=== PATIENT | female | born 1960 | race Caucasian/White ===

== ENCOUNTER → 2017-08-17 | Emergency (ER) | payer OTHER ==
[2017-08-17 18:59] LABS: ADD MAN DIFF? NO
[2017-08-17 19:01] LABS: BASOPHILS % 0.4 % (0.0-2.0); EOSINOPHILS % 0.2 % (0.0-7.0); HEMATOCRIT 43.6 % (37.0-47.0); HEMOGLOBIN 14.8 g/dl (12.0-16.0); LYMPHOCYTES # 1.2 10^3/ul (0.8-2.9); LYMPHOCYTES % 24.9 % (15.0-51.0); MEAN CORPUSCULAR HEMOGLOBIN 30.4 pg (29.0-33.0); MEAN CORPUSCULAR HGB CONC 33.9 g/dl (32.0-37.0); MEAN CORPUSCULAR VOLUME 89.5 fl (82.0-101.0); MEAN PLATELET VOLUME 10.1 fl (7.4-10.4); MONOCYTE # 0.5 10^3/ul (0.3-0.9); MONOCYTES % 10.4 % (0.0-11.0); NEUTROPHIL # 3.1 10^3/ul (1.6-7.5); NEUTROPHILS % 63.7 % (39.0-77.0); PLATELET COUNT 192 10^3/UL (140-415); RED BLOOD COUNT 4.87 10^6/ul (4.20-5.40); RED CELL DISTRIBUTION WIDTH 12.2 % (11.5-14.5)
[2017-08-17 19:01] LABS: WHITE BLOOD COUNT 4.9 10^3/ul (4.8-10.8)
[2017-08-17] MEDS: ACETAMINOPHEN 325 MG TAB PO (19:11)
[2017-08-17] MEDS: morphine 4 MG/ML VIAL IV (19:11)
[2017-08-17] MEDS: ONDANSETRON 4 MG INJ IV (19:11)
[2017-08-17] MEDS: SODIUM CHLORIDE 0.9% 1L BAG IV* (19:11)
[2017-08-17 19:16] LABS: INR 0.91; PROTIME 12.3 Sec (11.9-14.9)
[2017-08-17 19:17] LABS: PARTIAL THROMBOPLASTIN TIME 28.5 Sec (25.0-35.0)
[2017-08-17 19:18] LABS: ALANINE AMINOTRANSFERASE 68 IU/L (13-69); ALBUMIN 4.7 g/dl (3.3-4.9); ALBUMIN/GLOBULIN RATIO 1.27; ALKALINE PHOSPHATASE 74 IU/L (42-121); ANION GAP 17 (8-16); ASPARTATE AMINO TRANSFERASE 52 IU/L (15-46); BILIRUBIN,INDIRECT 0.4 mg/dl (0-1.1); BILIRUBIN,TOTAL 0.4 mg/dl (0.2-1.3); BLOOD UREA NITROGEN 11 mg/dl (7-20); CALCIUM 9.7 mg/dl (8.4-10.2); CARBON DIOXIDE 27 mmol/L (21-31); CHLORIDE 102 mmol/L (97-110); CREATININE 0.97 mg/dl (0.44-1.00); GLUCOSE 131 mg/dl (70-220); POTASSIUM 3.8 mmol/L (3.5-5.1); SODIUM 142 mmol/L (135-144); TOTAL PROTEIN 8.4 g/dl (6.1-8.1)
[2017-08-17 19:30] LABS: TROPONIN-I < 0.012 ng/ml (0.00-0.12)
[2017-08-17 19:44] LABS: LACTIC ACID 1.3 mmol/L (0.5-2.0)
[2017-08-17] MEDS: LIDOCAINE/MYLANTA 40 ML BTL PO (21:13)
[2017-08-17] MEDS: FAMOTIDINE 20 MG TAB PO (21:13)
== END | disposition home or self-care (01) ==
LOC: E/R 17:25
DX: J06.9 Acute upper respiratory infection, unspecified (principal); C50.919 Malignant neoplasm of unspecified site of unspecified female breast; R07.9 Chest pain, unspecified
CPT/HCPCS: 36415; 71045; 74176; 80053; 83605; 84484; 85025; 85610; 85730; 87040; 87400; 93005; 96374; 96375; 99285-25

== ENCOUNTER 2017-08-18 17:28 | Inpatient (IN) | payer OTHER ==
[2017-08-18 20:13] LABS: ADD MAN DIFF? NO
[2017-08-18 20:15] LABS: BASOPHILS % 0.3 % (0.0-2.0); EOSINOPHILS % 0.2 % (0.0-7.0); HEMATOCRIT 40.7 % (37.0-47.0); HEMOGLOBIN 13.6 g/dl (12.0-16.0); LYMPHOCYTES # 2.2 10^3/ul (0.8-2.9); LYMPHOCYTES % 34.6 % (15.0-51.0); MEAN CORPUSCULAR HEMOGLOBIN 30.2 pg (29.0-33.0); MEAN CORPUSCULAR HGB CONC 33.4 g/dl (32.0-37.0); MEAN CORPUSCULAR VOLUME 90.4 fl (82.0-101.0); MEAN PLATELET VOLUME 10.3 fl (7.4-10.4); MONOCYTE # 0.5 10^3/ul (0.3-0.9); MONOCYTES % 8.2 % (0.0-11.0); NEUTROPHIL # 3.5 10^3/ul (1.6-7.5); NEUTROPHILS % 56.4 % (39.0-77.0); PLATELET COUNT 181 10^3/UL (140-415); RED CELL DISTRIBUTION WIDTH 12.6 % (11.5-14.5)
[2017-08-18 20:15] LABS: WHITE BLOOD COUNT 6.2 10^3/ul (4.8-10.8)
[2017-08-18 20:31] LABS: LACTIC ACID 1.3 mmol/L (0.5-2.0)
[2017-08-18 20:34] LABS: ALANINE AMINOTRANSFERASE 48 IU/L (13-69); ALBUMIN 4.8 g/dl (3.3-4.9); ALBUMIN/GLOBULIN RATIO 1.09; ALKALINE PHOSPHATASE 69 IU/L (42-121); ANION GAP 18 (8-16); ASPARTATE AMINO TRANSFERASE 79 IU/L (15-46); BILIRUBIN,INDIRECT 0.5 mg/dl (0-1.1); BILIRUBIN,TOTAL 0.5 mg/dl (0.2-1.3); BLOOD UREA NITROGEN 9 mg/dl (7-20); CALCIUM 9.3 mg/dl (8.4-10.2); CARBON DIOXIDE 25 mmol/L (21-31); CHLORIDE 104 mmol/L (97-110); CREATININE 0.73 mg/dl (0.44-1.00); GLUCOSE 106 mg/dl (70-220); POTASSIUM 5.2 mmol/L (3.5-5.1); SODIUM 142 mmol/L (135-144); TOTAL PROTEIN 9.2 g/dl (6.1-8.1)
[2017-08-18 20:44] LABS: TROPONIN-I < 0.012 ng/ml (0.00-0.12)
[2017-08-18 20:46] LABS: ADD UMIC NO; UR ASCORBIC ACID 40 mg/dL (NEGATIVE); UR BILIRUBIN (Dip) NEGATIVE (NEGATIVE); UR BLOOD (Dip) NEGATIVE (NEGATIVE); UR CLARITY SLIGHTLY CLOUDY (CLEAR); UR COLOR YELLOW (YELLOW); UR GLUCOSE (Dip) NEGATIVE (NEGATIVE); UR KETONES (Dip) 1+ mg/dL (NEGATIVE); UR LEUKOCYTE ESTERASE (Dip) NEGATIVE Leu/ul (NEGATIVE); UR MUCUS FEW /HPF (NONE SEEN); UR NITRITE (Dip) NEGATIVE (NEGATIVE); UR RBC 3 /HPF (0-5); UR SPECIFIC GRAVITY (Dip) 1.017 (1.003-1.030); UR SQUAMOUS EPITHELIAL CELL FEW /HPF (FEW); UR TOTAL PROTEIN (Dip) NEGATIVE (NEGATIVE); UR UROBILINOGEN (Dip) NEGATIVE (NEGATIVE); UR WBC 2 /HPF (0-5)
[2017-08-18] MEDS: PIPER-TAZO 3.375 GM IV (PMX) 100 ML IVPB (21:37)
[2017-08-18] MEDS: SODIUM CHLORIDE 0.9% 1L BAG IV* (21:38)
[2017-08-18 21:47] LABS: INR 0.96; PROTIME 12.9 Sec (11.9-14.9)
[2017-08-18 21:48] LABS: PARTIAL THROMBOPLASTIN TIME 29.6 Sec (25.0-35.0)
[2017-08-18 21:48] LABS: LACTIC ACID 0.9 mmol/L (0.5-2.0)
[2017-08-19 00:16] LABS: LACTIC ACID 0.9 mmol/L (0.5-2.0)
[2017-08-19] MEDS: ONDANSETRON 4 MG INJ IV (00:42)
[2017-08-19] MEDS: HYDROCODONE/APAP (5/325) TAB PO (00:42)
[2017-08-19] MEDS: morphine 4 MG/ML VIAL IV (00:43)
[2017-08-19] MEDS: VANCOMYCIN 1 GM (PMX) 250 ML IVPB (00:43)
[2017-08-19] MEDS ORDERED: ACETAMINOPHEN 325 MG TAB PO ×2 (01:30→03:00)
[2017-08-19] MEDS ORDERED: ONDANSETRON 4 MG INJ IV ×2 (01:30→03:00)
[2017-08-19] MEDS: FLUTICASONE 0.05% 16 GM NAS SPRAY NASAL ×2 (03:00→08:56)
[2017-08-19] MEDS ORDERED: ALBUTEROL/IPRATROPIUM (NEB) 3 ML AMP HHN (03:00)
[2017-08-19] MEDS ORDERED: NACL 0.9% 3 ML SYG IV (03:00)
[2017-08-19] MEDS: predniSONE 20 MG TAB PO ×2 (04:02→08:56)
[2017-08-19 05:53] LABS: ADD MAN DIFF? NO
[2017-08-19 06:03] LABS: BASOPHILS % 0.2 % (0.0-2.0); EOSINOPHILS % 0.2 % (0.0-7.0); HEMATOCRIT 33.8 % (37.0-47.0); HEMOGLOBIN 11.6 g/dl (12.0-16.0); LYMPHOCYTES # 1.8 10^3/ul (0.8-2.9); LYMPHOCYTES % 39.1 % (15.0-51.0); MEAN CORPUSCULAR HEMOGLOBIN 31.4 pg (29.0-33.0); MEAN CORPUSCULAR HGB CONC 34.3 g/dl (32.0-37.0); MEAN CORPUSCULAR VOLUME 91.4 fl (82.0-101.0); MEAN PLATELET VOLUME 10.3 fl (7.4-10.4); MONOCYTE # 0.4 10^3/ul (0.3-0.9); MONOCYTES % 8.4 % (0.0-11.0); NEUTROPHIL # 2.3 10^3/ul (1.6-7.5); NEUTROPHILS % 51.9 % (39.0-77.0); PLATELET COUNT 149 10^3/UL (140-415); RED CELL DISTRIBUTION WIDTH 12.6 % (11.5-14.5)
[2017-08-19 06:03] LABS: WHITE BLOOD COUNT 4.5 10^3/ul (4.8-10.8)
[2017-08-19] MEDS: PANTOPRAZOLE (EC) 40 MG TAB PO (06:22)
[2017-08-19] MEDS: LEVOFLOXACIN 750 MG TABLET PO (06:22)
[2017-08-19 06:26] LABS: HEMOGLOBIN A1C 5.7 % (0-5.9)
[2017-08-19 06:29] LABS: ALANINE AMINOTRANSFERASE 50 IU/L (13-69); ALBUMIN 3.4 g/dl (3.3-4.9); ALBUMIN/GLOBULIN RATIO 1.06; ALKALINE PHOSPHATASE 51 IU/L (42-121); ANION GAP 12 (8-16); ASPARTATE AMINO TRANSFERASE 39 IU/L (15-46); BILIRUBIN,INDIRECT 0.2 mg/dl (0-1.1); BILIRUBIN,TOTAL 0.2 mg/dl (0.2-1.3); BLOOD UREA NITROGEN 9 mg/dl (7-20); CALCIUM 8.7 mg/dl (8.4-10.2); CARBON DIOXIDE 27 mmol/L (21-31); CHLORIDE 109 mmol/L (97-110); CHOL/HDL RATIO 3.3 RATIO; CHOLESTEROL 91 mg/dl (100-200); CREATININE 0.79 mg/dl (0.44-1.00); GLUCOSE 113 mg/dl (70-220); HDL CHOLESTEROL 27 mg/dl (37-92); POTASSIUM 3.5 mmol/L (3.5-5.1); SODIUM 144 mmol/L (135-144); TOTAL PROTEIN 6.6 g/dl (6.1-8.1); TRIGLYCERIDES 70 mg/dl (0-149)
[2017-08-19 06:30] LABS: LDL CHOLESTEROL,CALCULATED 50 mg/dl
[2017-08-19] MEDS: OSELTAMIVIR 75 MG CAP PO (08:56)
[2017-08-19] MEDS: DOCUSATE SODIUM 100 MG CAP PO ×2 (08:56→12:24)
[2017-08-19] MEDS: VENLAFAXINE (XR) 75 MG CAP PO (08:56)
[2017-08-19] MEDS ORDERED: TAMOXIFEN 10 MG TAB PO (09:00)
== END 2017-08-19 14:31 | disposition home or self-care (01) | DRG 872 ==
LOC: E/R 17:28 → PP2 08-19 01:13
DX: A41.9 Sepsis, unspecified organism (principal); C50.919 Malignant neoplasm of unspecified site of unspecified female breast; J01.90 Acute sinusitis, unspecified; J40 Bronchitis, not specified as acute or chronic; E66.9 Obesity, unspecified; Z68.32 Body mass index [BMI] 32.0-32.9, adult
CPT/HCPCS: 36415; 71045; 80053; 80061; 81001; 81003; 83036; 83605; 83735; 84443; 84484; 85025; 85610; 85730; 87040; 87070; 87086; 87275; 87276; 87279; 87280; 93005; 96374; 96375; 99291-25